=== PATIENT | female | born 1980 | race American Indian/Alaskan Native ===

== ENCOUNTER 2018-01-01 16:58 | Emergency (ER) | payer MEDICAID ==
--- NOTE | 2018-01-01 17:33 | Emergency Department Report ---
Blank Doc - Documentation Documentation: 37-year-old female currently approximately 13 weeks 4 days presents to the hospital complaining of bright red vaginal bleeding today. Patient has had brown spotting for the last 1 week. Patient has been on bed rest for the past 2 weeks [address] ordered [address]. Mosher at the [facility] [employer]. Patient denies pain currently. She has used 1 pad today. She has been referred to a high school tutor with appointment scheduled next week. Patient has had several ultrasounds verifying viable IUP including 2 this month and has been to [facility] as well. No urinary sx reported. Pt states to her knowledge she is RH+ and has not received Rhogam. abd nontender cbc hcg type and screen US pending
[2018-01-01 17:50] LABS: Basophils % (Auto) 0.4 % (0.0-1.8); Eosinophils # (Auto) 0.2 K/mm3 (0.0-0.4); Hematocrit 30.5 % (30.3-42.9); Hemoglobin 10.2 gm/dl (10.1-14.3); Lymphocytes # (Auto) 1.6 K/mm3 (1.2-5.4); Lymphocytes % (Auto) 20.2 % (13.4-35.0); Mean Corpuscular HGB Conc 33 % (30-34); Mean Corpuscular Hemoglobin 29 pg (28-32); Mean Corpuscular Volume 86 fl (79-97); Monocytes # (Auto) 0.4 K/mm3 (0.0-0.8); Monocytes % (Auto) 5.3 % (0.0-7.3); Platelet Count 304 K/mm3 (140-440); Red Blood Count 3.56 M/mm3 (3.65-5.03); Red Cell Distribution Width 15.1 % (13.2-15.2)
--- NOTE | 2018-01-01 19:09 | Emergency Department Report ---
ED Female HPI - General Chief complaint: Vaginal Bleeding Stated complaint: 13WKS BLEEDING Time Seen by Provider: 01/01/18 19:07 Source: patient Mode of arrival: Ambulatory Limitations: No Limitations - History of Present Illness Initial comments: This is a 37-year-old female who is not known to this provider previously. She is 6, para 3, last menstrual period is September 28, and reports a surgical history of dilatation and curettage 1. She reports being recently diagnosed with placenta previa. She presents to the ER with a complaint of acute on chronic vaginal bleeding over the past 2 weeks. She reports being placed on bed rest for the past 2 weeks. This bleeding is painless, does not radiate anywhere, does not have exacerbating or relieving factors. She denies urinary symptoms. MD Complaint: vaginal bleeding -: Gradual, week(s) Quality: other Consistency: other Improves with: other Worsens with: other Are you Now?: Yes Associated Symptoms: vaginal bleeding. denies: vaginal discharge, abdominal pain, nausea/vomiting, fever/chills, headaches, loss of appetite, dysuria, hematuria, rash, seizure, shortness of breath, syncope, weakness - Related Data Sexually active: Yes Home Medications Medication Instructions Recorded Confirmed Last Taken No Known Home Medications [No 03/01/13 03/01/13 Unknown Reported Home Medications] Allergies Allergy/AdvReac Type Severity Reaction Status Date / Time No Known Allergies Allergy Verified 01/01/18 17:07 ED Review of Systems ROS: Stated complaint: 13WKS BLEEDING Other details as noted in HPI Comment: All other systems reviewed and negative ED Past Medical Hx - Past Medical History Previous Medical History?: No - Surgical History Past Surgical History?: Yes Additional Surgical History: D&C 2007 - Social History Smoking Status: Never Smoker Substance Use Type: None - Medications Home Medications: Home Medications Medication Instructions Recorded Confirmed Last Taken Type No Known Home Medications [No 03/01/13 03/01/13 Unknown History Reported Home Medications] ED Physical Exam - General Limitations: No Limitations General appearance: alert, in no apparent distress - Head Head exam: Present: atraumatic, normocephalic - Eye Eye exam: Present: normal appearance, EOMI. Absent: nystagmus - ENT ENT exam: Present: normal exam, normal orophraynx, mucous membranes moist, normal external ear exam - Neck Neck exam: Present: normal inspection, full ROM. Absent: tenderness, meningismus - Respiratory Respiratory exam: Present: normal lung sounds bilaterally. Absent: respiratory distress, chest wall tenderness - Cardiovascular Cardiovascular Exam: Present: regular rate, normal rhythm, normal heart sounds. Absent: bradycardia, tachycardia, irregular rhythm, systolic murmur, diastolic murmur, rubs, gallop - GI/Abdominal GI/Abdominal exam: Present: soft, normal bowel sounds. Absent: distended, tenderness, guarding, rebound, rigid, pulsatile mass - Extremities Exam Extremities exam: Present: normal inspection, full ROM, normal capillary refill , other (2+ pulses noted in the bilateral upper, lower extremities. Compartments soft. No long bony tenderness. The pelvis is stable.). Absent: tenderness, pedal edema, joint swelling, calf tenderness - Back Exam Back exam: Present: normal inspection, full ROM. Absent: tenderness, CVA tenderness (R), paraspinal tenderness, vertebral tenderness - Neurological Exam Neurological exam: Present: alert, oriented X3, CN II-XII intact, normal gait, other (Extraocular movements intact. Tongue midline. No facial droop. Facial sensation intact to light touch in the V1, V2, V3 distribution bilaterally. 5 and 5 strength in 4 extremities.. Sensation is intact to light touch in 4 extremities.). Absent: motor sensory deficit - Psychiatric Psychiatric exam: Present: normal affect, normal mood - Skin Skin exam: Present: warm, dry, intact, normal color. Absent: rash ED Course Vital Signs 01/01/18 01/01/18 17:02 19:18 Temperature 98.4 F Pulse Rate 92 H Respiratory 16 16 Rate Blood Pressure 137/83 O2 Sat by Pulse 98 98 Oximetry - Reevaluation(s) Reevaluation #1: 01/01/18 22:34 Case is discussed with Dr. Mosher who recommends that patient is not a cerclage candidate as she is bleeding, and recommends continued bed rest and follow-up within the next week. She does not recommend any specific intervention at this time. ED Medical Decision Making - Lab Data Result diagrams: 01/01/18 17:37 Vital Signs 01/01/18 01/01/18 17:02 19:18 Temperature 98.4 F Pulse Rate 92 H Respiratory 16 16 Rate Blood Pressure 137/83 O2 Sat by Pulse 98 98 Oximetry Lab Results 01/01/18 01/01/1801/01/18 Range/Units 17:37 17:37 17:37 WBC 8.1 (4.5-11.0) K/mm3 RBC 3.56 L (3.65-5.03) M/mm3 Hgb 10.2 (10.1-14.3) gm/dl Hct 30.5 (30.3-42.9) % MCV 86 (79-97) fl MCH 29 (28-32) pg MCHC 33 (30-34) % RDW 15.1 (13.2-15.2) % Plt Count 304 (140-440) K/mm3 Lymph % (Auto) 20.2 (13.4-35.0) % [place] % (Auto) 5.3 (0.0-7.3) % Eos % (Auto) 2.0 (0.0-4.3) % Baso % (Auto) 0.4 (0.0-1.8) % Lymph # 1.6 (1.2-5.4) K/mm3 [place] # 0.4 (0.0-0.8) K/mm3 Eos # 0.2 (0.0-0.4) K/mm3 Baso # 0.0 (0.0-0.1) K/mm3 Seg Neutrophils % 72.1 H (40.0-70.0) % Seg Neutrophils # 5.8 (1.8-7.7) K/mm3 HCG, Quant 11812 H (0-4) mIU/mL Urine Color (Yellow) Urine Turbidity (Clear) Urine pH (5.0-7.0) Ur Specific [place] (1.003-1.030) Urine Protein (Negative) mg/dL Urine Glucose (UA) (Negative) mg/dL Urine Ketones (Negative) mg/dL Urine Blood (Negative) Urine Nitrite (Negative) Urine Bilirubin (Negative) Urine Urobilinogen (<2.0) mg/dL Ur Leukocyte Esterase (Negative) Urine WBC (Auto) (0.0-6.0) /HPF Urine RBC (Auto) (0.0-6.0) /HPF U Epithel Cells (Auto) (0-13.0) /HPF Urine Mucus /HPF Blood Type B POSITIVE Antibody Screen Negative 01/01/18 Range/Units 19:12 WBC (4.5-11.0) K/mm3 RBC (3.65-5.03) M/mm3 Hgb (10.1-14.3) gm/dl Hct (30.3-42.9) % MCV (79-97) fl MCH (28-32) pg MCHC (30-34) % RDW (13.2-15.2) % Plt Count (140-440) K/mm3 Lymph % (Auto) (13.4-35.0) % [place] % (Auto) (0.0-7.3) % Eos % (Auto) (0.0-4.3) % Baso % (Auto) (0.0-1.8) % Lymph # (1.2-5.4) K/mm3 [place] # (0.0-0.8) K/mm3 Eos # (0.0-0.4) K/mm3 Baso # (0.0-0.1) K/mm3 Seg Neutrophils % (40.0-70.0) % Seg Neutrophils # (1.8-7.7) K/mm3 HCG, Quant (0-4) mIU/mL Urine Color Yellow (Yellow) Urine Turbidity Slightly-cloudy (Clear) Urine pH 6.0 (5.0-7.0) Ur Specific [place] 1.026 (1.003-1.030) Urine Protein 30 mg/dl (Negative) mg/dL Urine Glucose (UA) Neg (Negative) mg/dL Urine Ketones Neg (Negative) mg/dL Urine Blood Lg (Negative) Urine Nitrite Neg (Negative) Urine Bilirubin Neg (Negative) Urine Urobilinogen 2.0 (<2.0) mg/dL Ur Leukocyte Esterase Neg (Negative) Urine WBC (Auto) 8.0 H (0.0-6.0) /HPF Urine RBC (Auto) > 182.0 (0.0-6.0) /HPF U Epithel Cells (Auto) 2.0 (0-13.0) /HPF Urine Mucus 2+ /HPF Blood Type Antibody Screen - Radiology Data Radiology results: report reviewed, image reviewed [facility] [address] [place] [address] Ultrasound Report Signed Patient: MEERA MARTINEZ MR#: [id number] : 1980 Acct:[id number] Age/Sex: 37 / F ADM Date: 01/01/18 Loc: ED Attending Dr: Ordering Physician: DARLEEN RODRIGUEZ MD Date of Service: 01/01/18 Procedure(s): US OB transvaginal Accession Number(s): [id number] cc: DARLEEN RODRIGUEZ MD FINAL REPORT EXAM: US OB TRANSVAGINAL HISTORY: vag bleeding Beta HCG 73932 which is equivalent to a 6-7 week gestation. Last menstrual. September 28, 2017 with estimated gestational age by dates of 13 weeks 4 days. TECHNIQUE: Transvaginal grayscale and M-mode imaging of the pelvis was performed. Comparison: Transabdominal ultrasound also performed today FINDINGS: The cervix is closed. There decreased echogenicity within the cervix suggestive of fluid. The uterus measures 17.5 centimeters by 10.3 centimeters by 11.3 centimeters. There is demonstration of a single living intrauterine gestation with estimated gestational age of 14 weeks 1 day by measurement of crown-rump length (8.2 centimeters). heart rate is measured at 163 beats per minute. IMPRESSION: 1. Demonstration of a single living intrauterine gestation with estimated gestational age of 14 weeks 1 day by measurement of crown-rump length. 2. The cervix is closed. Decreased echogenicity within the cervix is suggestive of fluid. Transcribed By: ED Dictated By: MICHELLE ADDISON MD Electronically Authenticated By: MICHELLE ADDISON MD Signed Date/Time: 01/01/18 699 - Medical Decision Making Differential diagnosis, including but not limited to: Placental previa, urinary tract infection, miscarriage, threatened miscarriage Assessment and plan: 37-year-old female with reported history of acute on subacute vaginal bleeding and reported history of outpatient placenta previa. Rh+. Urinalysis not consistent with urinary tract infection. Hemodynamically stable. Ultrasound does not demonstrate any evidence of acute surgical condition. We will discuss with her tool room lathe operator Dr. Mosher. Critical care attestation.: If time is entered above; I have spent that time in minutes in the direct care of this critically ill patient, excluding procedure time. ED Disposition Clinical Impression: Vaginal bleeding before 22 weeks gestation Disposition: - TO HOME OR SELFCARE Is pt being admited?: No Does the pt Need Aspirin: No Condition: Good Instructions: Placenta Previa (ED) Additional Instructions: Rest, and avoid heavy lifting. Avoid strenuous physical activity. Remain on bedrest. Cannot have sex until cleared by a tool room lathe operator. Follow-up with her tool room lathe operator within the next 3-5 days. Return to the ER right away with new pain, worsened pain, migration of pain, projectile vomiting, change in mental status, confusion, inability to tolerate liquid feeds. Referrals: PRIMARY CAREMD [Primary Care Provider] - 3-5 Days ELOY MOSHER MD [Staff Physician] - 3-5 Days
[2018-01-01 19:31] LABS: Bilirubin,Urine NEG (Negative); Blood,Urine LG (Negative); Color,Urine Yellow (Yellow); Mucus,Urine 2+ /HPF; RBC,Urine > 182.0 /HPF (0.0-6.0)
[2018-01-01] MEDS ORDERED: ZOFRAN ODT ONE (19:41)
[2018-01-01] MEDS ORDERED: ZOFRAN ODT PO PRN (19:41)
--- NOTE | 2018-01-01 22:06 | Ultrasound Report ---
FINAL REPORT EXAM: US OB TRANSVAGINAL HISTORY: vag bleeding Beta HCG 10514 which is equivalent to a 6-7 week gestation. Last menstrual. September 28, 2017 with estimated gestational age by dates of 13 weeks 4 days. TECHNIQUE: Transvaginal grayscale and M-mode imaging of the pelvis was performed. Comparison: Transabdominal ultrasound also performed today FINDINGS: The cervix is closed. There decreased echogenicity within the cervix suggestive of fluid. The uterus measures 17.5 centimeters by 10.3 centimeters by 11.3 centimeters. There is demonstration of a single living intrauterine gestation with estimated gestational age of 14 weeks 1 day by measurement of crown-rump length (8.2 centimeters). heart rate is measured at 163 beats per minute. IMPRESSION: 1. Demonstration of a single living intrauterine gestation with estimated gestational age of 14 weeks 1 day by measurement of crown-rump length. 2. The cervix is closed. Decreased echogenicity within the cervix is suggestive of fluid.
--- NOTE | 2018-01-01 22:09 | Ultrasound Report ---
FINAL REPORT EXAM: US OB < = 14 WEEKS FETUS HISTORY: vag bleeding TECHNIQUE: Transabdominal grayscale and M-mode imaging of the uterus was performed. Comparison: Transvaginal study also performed today FINDINGS: The uterus measures 17.4 centimeters by 10 centimeters by 13.3 centimeters. There is demonstration of an intrauterine gestation with estimated gestational age of 13 weeks 4 days by measurement of crown-rump length (7.5 centimeters). heart rate is measured at 162 beats per minute. The ovaries are not demonstrated on the images provided. IMPRESSION: 1. Demonstration of a single living intrauterine gestation with estimated gestational age of 13 weeks 4 days by measurement of crown-rump length.
[2018-01-01 22:47] VITALS: BP 111/63
== END 2018-01-01 22:46 | disposition home or self-care (01) ==
LOC: ED 16:58
DX: O46.91 Antepartum hemorrhage, unspecified, first trimester (principal); Z3A.13 13 weeks gestation of pregnancy
CPT/HCPCS: 36415; 76801; 76817; 81001; 84702; 85025; 86850; 86900; 86901; 87086; Q0162

== ENCOUNTER 2018-07-04 23:48 | Inpatient (IN) | payer MEDICAID ==
[2018-07-05] MEDS ORDERED: LACTATED RINGERS 1,000 ML ONE (00:12)
[2018-07-05 00:43] LABS: Hemoglobin 9.3 gm/dl (10.1-14.3); Mean Corpuscular HGB Conc 31 % (30-34); Mean Corpuscular Volume 73 fl (79-97); Platelet Count 363 K/mm3 (140-440); Red Blood Count 4.13 M/mm3 (3.65-5.03)
[2018-07-05] MEDS ORDERED: REGLAN IV ONE (00:52)
[2018-07-05] MEDS ORDERED: BICITRA ONE (00:52)
[2018-07-05] MEDS ORDERED: BICITRA PO ONE (00:52)
[2018-07-05] MEDS ORDERED: PITOCin/NS 20 UNIT/1000ML DRIP 20,000 MILLIUNITS/1,000 ML BAG IV ONE (00:52)
[2018-07-05] MEDS ORDERED: PEPCID IV ONE ×2 (00:52→00:53)
[2018-07-05] MEDS ORDERED: METHERGINE IM ONE ×2 (00:53→00:55)
[2018-07-05] MEDS ORDERED: CYTOTEC PR ONE (00:53)
[2018-07-05] MEDS ORDERED: REGLAN ONE (00:53)
[2018-07-05] MEDS ORDERED: CYTOTEC ONE (00:54)
--- NOTE | 2018-07-05 00:58 | History and Physical Report ---
History of Present Illness Date of examination: 07/05/18 Date of admission: 07/05/18 Chief complaint: leaking " I broke my water" History of present illness: This is a 38 yo EDC 07/05/18 at 40 weeks here for leaking. She said a big gush of clear fluid at home and came here and no bleeding. She is a patient of [facility] since 11 weeks and has been followed by MFM for EIF, polyhydramnios, and low lying placenta. Per MFM resolved but on US today shows continued low lying placenta. Patient is bleeding and will draw labs, and prepare for primary csec. 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 denies: smoking, alcohol abuse, prescription drug abuse - Obstetrical History Expected Date of Delivery: 07/05/18 Actual Gestation: 40 Week(s) 0 Day(s) : 5 Para: 3 Hx # Term Pregnancies: 3 Number of Pregnancies: 0 Spontaneous Abortions: 0 Induced : 1 Number of Living Children: 3 Medications and Allergies Allergies Allergy/AdvReac Type Severity Reaction Status Date / Time No Known Allergies Allergy Verified 01/01/18 17:07 Home Medications Medication Instructions Recorded Confirmed Last Taken Type No Known Home Medications [No 03/01/13 03/01/13 Unknown History Reported Home Medications] Active Meds: Active Medications Lactated Ringer's (Lactated Ringers) 1,000 mls @ 999 mls/hr IV DIRECT ILIANA Review of Systems All systems: negative Genitourinary: vaginal bleeding, leakage of fluid, contractions - Vital Signs Vital signs: Vital Signs Pulse BP 81 120/81 07/04/18 23:58 07/04/18 23:58 Temp Pulse Resp BP Pulse Ox 81 130/85 07/05/18 00:39 07/05/18 00:39 - Physical Exam Breasts: Positive: normal Cardiovascular: Regular rate, Normal S1 Lungs: Positive: Clear to auscultation, Normal air movement Abdomen: Positive: normal appearance, soft, normal bowel sounds. Negative: distention, tenderness, guarding Genitourinary (Female): Positive: normal external genitalia, normal perenium Vulva: both: normal Uterus: Positive: normal size Anus/Rectum: Positive: normal perianal skin Extremities: Positive: normal Deep Tendon Reflex Grade: Normal +2 - Obstetrical FHR: category 1 Cervical Dilatation: 2 Cervical Effacement Percentage: 100 station: 3 Uterine Contraction Pattern: Regular Uterine Tone Measurement Phase: Contraction Uterine Contraction Intensity: Mild Results All other labs normal. Ultrasound: report reviewed Assessment and Plan A/P IUP 40 weeks, cephalic low lying placenta vaginal bleeding labor IVF, labs proceed with primary csec consents signed after r/b/a which include but not limited to bleeding, infection, damage to pelvic and non pelvic organs, blood clots, hysterectomy and
[2018-07-05 01:00] LABS: Red Cell Distribution Width 20.9 % (13.2-15.2)
[2018-07-05] MEDS ORDERED: ANCEF/STERILE WATER 2 GM/20 ML 2 GM/20 ML SYRINGE IV NR (01:00)
[2018-07-05] MEDS ORDERED: PITOCin/NS 20 UNIT/1000ML DRIP 20 UNITS/1,000 ML BAG IV SCH ×2 (01:00→04:00)
[2018-07-05] MEDS ORDERED: LACTATED RINGERS 1,000 ML IV SCH ×2 (01:00)
[2018-07-05] MEDS ORDERED: DILAUDID IV PRN ×2 (01:13)
[2018-07-05] MEDS ORDERED: NARCAN 0.4 MG/1 ML IV PRN ×2 (01:13→03:11)
[2018-07-05] MEDS ORDERED: PHENERGAN PR PRN (01:13)
[2018-07-05] MEDS ORDERED: ZOFRAN IV PRN (01:13)
[2018-07-05] MEDS ORDERED: BENADRYL IV PRN (01:13)
[2018-07-05] MEDS ORDERED: PHENERGAN PO PRN (01:13)
--- NOTE | 2018-07-05 01:13 | Anesthesia Day of Surgery ---
Anesthesia Day of Surgery - Day of Surgery Patient Examined: Yes Patient H&P Reviewed: Yes Patient is NPO: Yes
--- NOTE | 2018-07-05 01:13 | Anesthesia Consultation ---
Anesthesia Consult and Med Hx Date of service: 07/05/18 - Airway Anesthetic Teeth Evaluation: Good ROM Head & Neck: Adequate Mental/Hyoid Distance: Adequate Mallampati Class: Class II Intubation Access Assessment: Probably Good - Pre-Operative Health Status ASA Pre-Surgery Classification: ASA2, Emergency Proposed Anesthetic Plan: Epidural, Spinal - Pulmonary Hx Asthma: No - Cardiovascular System Hx Hypertension: No - Central Nervous System Hx Seizures: No Hx Psychiatric Problems: No - Endocrine Hx Renal Disease: No Hx Hypothyroidism: No Hx Hyperthyroidism: No - Hematic Hx Anemia: Yes Hx Sickle Cell Disease: No - Other Systems Hx Alcohol Use: No
[2018-07-05] MEDS ORDERED: WATER FOR IRRIG STERILE IR ONE (01:30)
[2018-07-05] MEDS ORDERED: NACL 0.9% IR ONE (01:30)
--- NOTE | 2018-07-05 01:43 | Ultrasound Report ---
FINAL REPORT PROCEDURE: US OB LIMITED TECHNIQUE: Real-time limited sonographic examination was performed for evaluation of size, pos ition, heartbeat, fluid volume for each fetus with image documentation (1 or more fetuses). CPT 7681 5 HISTORY: rule out abruption COMPARISON: No prior studies are available for comparison. FINDINGS: Fetus is in cephalic presentation. Placenta is anterior and low lying. There is no abruption. heart rate is 151 beats per minute. The cervix is incompetent. Endocervical canal is open. There are membranes bulging through the endoce rvical canal into the vagina. Biophysical profile: breathing movements: 2. movements: 2. posterior and tone: 2. Amniotic fluid volume: 2. IMPRESSION: Fetus is in cephalic presentation. Placenta is anterior and low lying. There is no abruption. The cervix is incompetent. Endocervical canal is open. There are membranes bulging through the endoce rvical canal into the vagina. biophysical profile is 8/8.
[2018-07-05] MEDS ORDERED: XYLOCAINE MPF 2% ONE ×4 (01:53)
[2018-07-05] MEDS ORDERED: NEO SYNEPHRINE/NS Syringe(OR USE) IV ONE (01:53)
[2018-07-05] MEDS ORDERED: SODIUM CHLORIDE FLUSH SYRINGE 10 ML IV NR ×2 (02:00→04:00)
[2018-07-05] MEDS ORDERED: NACL 0.9% 1000 ML 2,000 ML ONE (02:24)
[2018-07-05] MEDS ORDERED: ROBINUL ONE (02:30)
[2018-07-05] MEDS ORDERED: ASTRAMORPH PF 10MG/10ML ONE (02:37)
[2018-07-05] MEDS ORDERED: DILAUDID ONE (02:45)
[2018-07-05] MEDS ORDERED: NACL 0.9% 1000 ML 1,000 ML ONE (02:55)
[2018-07-05] MEDS ORDERED: SENOKOT PO PRN (03:11)
[2018-07-05] MEDS ORDERED: MORPHINE IV PRN ×2 (03:11)
[2018-07-05] MEDS ORDERED: TUCKS PAD TP PRN (03:11)
[2018-07-05] MEDS ORDERED: LANSINOH TP PRN (03:11)
[2018-07-05] MEDS ORDERED: TYLENOL PO PRN (03:11)
--- NOTE | 2018-07-05 03:19 | Procedure Note ---
OB Delivery Note - Delivery Date of Delivery: 07/05/18 Surgeon: ELOY BEAUCHAMP Estimated blood loss: other (1200 cc) - Section Preop diagnosis: other (low lying placenta, vaginal bleeding, labor ) Postop diagnosis: other (breech and low lying placenta) section procedure: section Disposition: PACU Complications: intra-op hemorrhage Narrative: see op note - Infant A at 1 minute: 8 at 5 minutes: 9 Gender: Female
--- NOTE | 2018-07-05 03:32 | Operative Report ---
Operative Report Operative Report: DATE: 07/05/18 PREOPERATIVE DIAGNOSES: Term , vaginal bleeding, low lying placenta POSTOPERATIVE DIAGNOSES: same as above, breech OPERATION: Primary section by low-transverse incision. SURGEON: Dr. Corrine Mosher MD ANESTHESIA: Spinal ESTIMATED BLOOD LOSS: 1200 mL. COMPLICATIONS: None. CONDITION: Stable. DRAINS: Russ catheter. INDICATIONS: The patient is a 38-year-old, G6, para 3023 with an EDC of 07/05/18. The patient has been followed by MFM for low lying placenta per MFM resolved 06/14/18 and polyhydramnios. She came in c/o leaking and bleeding. US performed in triage noting a low lying placenta, cephalic. As the patient was noted to be bleeding, navin and confirmed remeaining low lying placenta it was discussed and agreed to proceed with primary . PROCEDURE: The patient was taken to the operating room where her spinal anesthesia was reinforced. She was prepped and draped in the usual fashion for the procedure. After adequate epidural level was confirmed, the scalp was utilized to make a transverse incision in the patient's lower abdominal wall. Th is incision was carried down to the level of the fascia, which was also transversely incised. After adequate hemostasis, the fascia was bluntly and sharply up from the underlying rectus muscle. The rectus muscle was in midline exposing the peritoneum. The peritoneum was carefully grasped and elevated with hemostats. It was entered in an up and down fashion with Metzenbaum scissors. The bladder blade was placed in the lower pole of the incision to protect the bladder. The uterus was palpated and inspected. toruous vessel noted through out low uterine segment. It was decided to find a clear area. The vertex presentation was not confirmed and feet were palpated and grasped and delivered a viable female. Clear fluid was noted upon entering into the amniotic space. A term viable female was delivered up through the incision and handed to awaiting Peds team. . The placenta was manually extracted from the endometrial cavity. A ring clamp and two Allis clamps were placed around the margin of the uterine incision for hemostasis.The uterus was delivered up into the operative field. The endometrial cavity was swiped clean with a moist laparotomy pad. The uterine incision was then closed in a two-layered fashion with 0 Vicryl suture, the first layer interlocking and the second layer imbricating. Several figure of eight used for several tortuous vessels. Two additional stitches of 3-0 Vicryl suture were utilized for hemostasis. tissel and surgicell and indoseed used. The uterine incision was noted to be hemostatic upon closure. The uterus was rotated for sims, normal tubes and ovaries were noted on both sides. The uterus was then returned to its normal position of the abdominal cavity. The sponge and instrument count was performed for the first time at this point and found to be correct. The pelvis and anterior uterine space was then irrigated with saline solution. It was suctioned dry. A final check of the uterine incision confirmed hemostasis. The rectus muscle was stabilized across the midline with two simple stitches of 0 Vicryl suture. The subcutaneous tissue was then exposed, and the fascia closed with two running lengths of 0 Vicryl suture, beginning in lateral margins and overlapping the midline. The subcutaneous tissue was then irrigated and inspected. No active bleeding was noted. It was closed with a running length of 3-0 plain catgut suture. The skin was then approximated with surgical melyssa needle. The incision was cleansed and sterilely dressed. The patient was transferred to the recovery room in stable condition. The es timated blood loss through the procedure was 1200 mL. The sponge and instrument counts were performed two more times during closure and found to be correct each time. Intraop blood was intitated as patient began with hemoglobin of 9 from chronic anemia. 1 U of prbc transfused in OR and to continue in PACU.
[2018-07-05] MEDS ORDERED: D5LR 1,000 ML IV SCH (04:00)
[2018-07-05] MEDS: TORADOL IV PRN ×3 (07:56→20:44)
[2018-07-05 08:22] LABS: Basophils # (Auto) 0.1 K/mm3 (0.0-0.1); Basophils % (Auto) 0.3 % (0.0-1.8); Hematocrit 27.4 % (30.3-42.9); Hemoglobin 8.6 gm/dl (10.1-14.3); Lymphocytes # (Auto) 1.2 K/mm3 (1.2-5.4); Lymphocytes % (Auto) 6.4 % (13.4-35.0); Mean Corpuscular HGB Conc 32 % (30-34); Mean Corpuscular Volume 76 fl (79-97); Monocytes # (Auto) 1.6 K/mm3 (0.0-0.8); Monocytes % (Auto) 8.5 % (0.0-7.3); Platelet Count 193 K/mm3 (140-440); Red Blood Count 3.59 M/mm3 (3.65-5.03)
[2018-07-05 08:35] LABS: INR 1.63 (0.87-1.13)
[2018-07-05 08:36] LABS: Partial Thromboplastin Time 40.2 Sec. (24.2-36.6)
[2018-07-05 08:40] LABS: Red Cell Distribution Width 21.4 % (13.2-15.2)
[2018-07-05] MEDS: PRENATAL VITAMIN PO SCH (10:01)
[2018-07-05] MEDS: FEOSOL PO SCH (10:01)
[2018-07-05 15:40] LABS: Hematocrit 24.7 % (30.3-42.9); Hemoglobin 7.8 gm/dl (10.1-14.3)
--- NOTE | 2018-07-05 16:35 | Ultrasound Report ---
FINAL REPORT PROCEDURE: US OB LIMITED TECHNIQUE: Real-time limited sonographic examination was performed for evaluation of size, pos ition, heartbeat, fluid volume for each fetus with image documentation (1 or more fetuses). CPT 7681 5 HISTORY: rule out abruption COMPARISON: No prior studies are available for comparison. FINDINGS: Fetus is in cephalic presentation. Placenta is anterior and low lying. There is no abruption. The cervix is incompetent. Endocervical canal is open. There are membranes bulging through the endoce rvical canal into the vagina. IMPRESSION: Fetus is in cephalic presentation. Placenta is anterior and low lying. There is no abruption. The cervix is incompetent. Endocervical canal is open. There are membranes bulging through the endoce rvical canal into the vagina.
--- NOTE | 2018-07-05 17:39 | Progress Note ---
Assessment and Plan - Patient Problems (1) delivery delivered Current Visit: Yes Status: Acute Plan to address problem: routine postop care Subjective - Subjective Date of service: 07/05/18 Interval history: Patient is s/p primary c/s today. Resting in bed with curtis in place. Denies any nausea Patient reports: pain well controlled, no voiding normally : doing well Objective - Vital Signs Latest vital signs: Vital Signs Temp Pulse Resp BP BP Pulse Ox 07/05/18 13:10 97.9 F 100 H 18 102/63 07/05/18 08:30 97.6 F 71 18 97/60 07/05/18 05:19 97.6 F 115 H 20 117/77 93 07/05/18 04:21 97.8 F 101 H 12 139/101 98 07/05/18 04:06 97.5 F L 99 H 24 146/102 98 07/05/18 04:05 30 H 07/05/18 03:51 97.6 F 91 H 25 H 147/100 98 07/05/18 03:36 97.5 F L 100 H 32 H 138/87 99 07/05/18 03:21 97.5 F L 112 H 31 H 135/78 98 07/05/18 01:09 95 H 126/76 07/05/18 00:55 69 131/82 07/05/18 00:39 81 130/85 07/05/18 00:24 80 134/83 07/05/18 00:08 77 119/78 07/04/18 23:58 81 120/81 Intake and Output 07/05/18 07/05/18 07/05/18 06:59 14:59 22:59 Intake Total 4200 560 Output Total 750 600 Balance 3450 -40 Intake: IV 3700 Oral 560 Blood Product 500 Leukoreduced Red Blood 0 Cells Unit [id number] Output: Urine 750 600 Indwelling Catheter 600 Void 0 Other: Total, Intake Amount 120 Total, Output Amount 600 # Voids Void 0 Weight 66.678 kg Estimated Blood Loss 1,200 - Exam Breasts: Present: deferred Cardiovascular: Present: Regular rate Lungs: Present: Clear to auscultation - Labs Labs: Abnormal lab results 07/05/18 07/05/18 07/05/18 Range/Units 00:15 00:15 07:44 WBC (4.5-11.0) K/mm3 RBC (3.65-5.03) M/mm3 Hgb 9.3 L (10.1-14.3) gm/dl Hct 30.0 L (30.3-42.9) % MCV 73 L (79-97) fl MCH 22 L (28-32) pg RDW 20.9 H (13.2-15.2) % Lymph % (Auto) (13.4-35.0) % [place] % (Auto) (0.0-7.3) % [place] # (0.0-0.8) K/mm3 Seg Neutrophils % (40.0-70.0) % Seg Neutrophils # (1.8-7.7) K/mm3 PT 20.4 H (12.2-14.9) Sec. INR 1.63 H (0.87-1.13) APTT 40.2 H (24.2-36.6) Sec. Crossmatch See Detail 07/05/18 07/05/18 Range/Units 07:44 14:48 WBC 18.7 H (4.5-11.0) K/mm3 RBC 3.59 L (3.65-5.03) M/mm3 Hgb 8.6 L 7.8 L (10.1-14.3) gm/dl Hct 27.4 L 24.7 L (30.3-42.9) % MCV 76 L (79-97) fl MCH 24 L (28-32) pg RDW 21.4 H (13.2-15.2) % Lymph % (Auto) 6.4 L (13.4-35.0) % [place] % (Auto) 8.5 H (0.0-7.3) % [place] # 1.6 H (0.0-0.8) K/mm3 Seg Neutrophils % 84.8 H (40.0-70.0) % Seg Neutrophils # 15.8 H (1.8-7.7) K/mm3 PT (12.2-14.9) Sec. INR (0.87-1.13) APTT (24.2-36.6) Sec. Crossmatch
[2018-07-06] MEDS: IBUPROFEN PO PRN ×4 (00:25→18:15)
[2018-07-06] MEDS: PERCOCET 5/325 PO PRN (04:27)
[2018-07-06] MEDS ORDERED: M-M-R II VACCINE SUB-Q ONE (06:00)
[2018-07-06] MEDS ORDERED: BOOSTRIX IM ONE (06:00)
--- NOTE | 2018-07-06 08:37 | Progress Note ---
Assessment and Plan - Patient Problems (1) delivery delivered Current Visit: Yes Status: Acute Plan to address problem: routine postop care Subjective - Subjective Date of service: 07/06/18 Interval history: Patient is tolerating clear diet. Denies flatus. Pain is better controlled. Patient reports: appetite normal, voiding normally, pain well controlled [place]: doing well, nursing well Objective - Vital Signs Latest vital signs: Vital Signs Temp Pulse Resp BP BP Pulse Ox 07/06/18 05:59 18 07/06/18 04:27 18 07/06/18 00:25 18 07/05/18 21:54 98.7 F 89 20 108/68 97 07/05/18 20:44 18 07/05/18 16:15 97.9 F 87 18 100/67 07/05/18 13:10 97.9 F 100 H 18 102/63 Intake and Output 07/05/18 07/06/18 07/06/18 22:59 06:59 14:59 Intake Total 360 240 Output Total 200 500 Balance 160 -260 Intake: Oral 360 240 Output: Urine 200 500 Void 200 500 Other: Total, Intake Amount 240 120 Total, Output Amount 200 200 # Voids Void 0 - Exam Incision: Present: dressed - Labs Labs: Abnormal lab results 07/05/18 07/05/18 07/05/18 Range/Units 00:15 07:44 07:44 WBC 18.7 H (4.5-11.0) K/mm3 RBC 3.59 L (3.65-5.03) M/mm3 Hgb 8.6 L (10.1-14.3) gm/dl Hct 27.4 L (30.3-42.9) % MCV 76 L (79-97) fl MCH 24 L (28-32) pg RDW 21.4 H (13.2-15.2) % Lymph % (Auto) 6.4 L (13.4-35.0) % APTT 40.2 H (24.2-36.6) Sec. Crossmatch See Detail 07/05/18 Range/Units 14:48 WBC (4.5-11.0) K/mm3 RBC (3.65-5.03) M/mm3 Hgb 7.8 L (10.1-14.3) gm/dl Hct 24.7 L (30.3-42.9) % MCV (79-97) fl MCH (28-32) pg RDW (13.2-15.2) % Lymph % (Auto) (13.4-35.0) % APTT (24.2-36.6) Sec. Crossmatch
[2018-07-06] MEDS ORDERED: CEPACOL X STRENGTH MM PRN (10:00)
[2018-07-06] MEDS: PRENATAL VITAMIN PO SCH (11:37)
[2018-07-06] MEDS: MYLICON PO PRN (11:37)
[2018-07-06] MEDS: FEOSOL PO SCH (11:37)
[2018-07-06] MEDS: NORCO 5/325 PO PRN ×2 (11:38→18:15)
[2018-07-06] MEDS: MILK OF MAGNESIA PO PRN (22:32)
[2018-07-07] MEDS: IBUPROFEN PO PRN ×5 (00:04→23:23)
[2018-07-07] MEDS: PERCOCET 5/325 PO PRN ×2 (00:05→21:26)
--- NOTE | 2018-07-07 08:38 | Progress Note ---
Assessment and Plan A/P POD 2 primary csec s/p blood transfusion 2 u iron tid stable routine post op care d/c home tomorrow Subjective - Subjective Date of service: 07/07/18 Principal diagnosis: s/p csec for breech, low lying placenta Interval history: This is a 38 yo EDC 07/05/18 at 40 weeks here for leaking. She said a big gush of clear fluid at home and came here and no bleeding. She is a patient of [facility] since 11 weeks and has been followed by MFM for EIF, polyhydramnios, and low lying placenta. Per MFM resolved but on US today shows continued low lying placenta. Patient is bleeding and will draw labs, and prepare for primary csec. Patient reports: appetite normal, voiding normally, pain well controlled, flatus, ambulating normally [place]: doing well Objective - Vital Signs Latest vital signs: Vital Signs Temp Pulse Resp BP BP Pulse Ox 07/07/18 07:26 97.8 F 99 H 18 100/68 07/07/18 05:47 18 07/07/18 01:04 97.9 F 103 H 20 111/70 99 07/07/18 00:05 18 07/07/18 00:04 18 07/06/18 08:50 98.5 F 97 H 18 109/68 Intake and Output 07/06/18 07/07/18 07/07/18 23:59 07:59 15:59 Intake Total 240 720 Balance 240 720 Intake: Oral 240 720 Other: Total, Intake Amount 240 480 Total, Output Amount 1 # Voids Void 1 1 - Exam Breasts: Present: normal Cardiovascular: Present: Regular rate, Normal S1 Lungs: Present: Clear to auscultation, Normal air movement Abdomen: Present: normal appearance, soft, normal bowel sounds. Absent: distention, tenderness, guarding Vulva: both: normal Uterus: Present: normal, firm, fundal height below umbilicus. Absent: bogginess, tenderness Extremities: Present: normal Incision: Present: normal, dry, intact
--- NOTE | 2018-07-07 08:41 | Discharge Summary ---
Providers - Providers Date of Admission: 07/05/18 00:56 Date of discharge: 07/08/18 Attending physician: ELOY BEAUCHAMP MD Primary care physician: ELOY BEAUCHAMP MD Hospitalization Reason for admission: active labor, vaginal bleeding, rupture of membranes, other (breech , low lying placenta) Delivery: Procedure: section, primary low transverse Episiotomy: none Laceration: none Incision: normal, dry, intact Other procedures: none complications: transfusion Discharge diagnosis: IUP at term delivered [place] baby: female Hospital course: Patient admitted for srom and vaginal bleeding with a low lying placenta in labor. primary csec performed. patient anemic and lost 1200 cc blood during csec. Required 2 u blood transfusion. Did well post op. discharge home pod #3. f/u in 2 weeks Condition at discharge: Good Disposition: DC-01 TO HOME OR SELFCARE Plan - Discharge Medications Prescriptions: Ferrous Sulfate 325 mg PO TID #60 tablet. Ibuprofen [Motrin] 600 mg PO Q8H PRN #30 tablet PRN Reason: Pain oxyCODONE /ACETAMINOPHEN [Percocet 5/325] 1 tab PO Q6HR PRN #30 tablet PRN Reason: Pain - Provider Discharge Summary Activity: routine, no sex for 6 weeks, no strenuous exercise Diet: routine Instructions: routine Additional instructions: [] Smoking cessation referral if applicable(refer to patient education folder for contact #) [] Refer to [facility]'s [facility] Booklet Call your doctor immediately for: * Fever > 100.5 * Heavy vaginal bleeding ( >1 pad per hour) * Severe persistent headache * Shortness of breath * Reddened, hot, painful area to leg or breast * Drainage or odor from incision. * Keep incision clean and dry at all times and follow doctor's instructions regarding bathing/showering - Follow up plan Follow up: ELOY BEAUCHAMP MD [Primary Care Provider] - 14 Days
[2018-07-07] MEDS: FEOSOL PO SCH (09:51)
[2018-07-07] MEDS: PRENATAL VITAMIN PO SCH (09:51)
[2018-07-07] MEDS: MYLICON PO PRN ×2 (10:06→21:26)
[2018-07-07] MEDS: MILK OF MAGNESIA PO PRN (21:26)
[2018-07-08] MEDS: IBUPROFEN PO PRN ×2 (05:17→12:00)
[2018-07-08] MEDS: PERCOCET 5/325 PO PRN (05:17)
[2018-07-08] MEDS: PRENATAL VITAMIN PO SCH (10:10)
[2018-07-08] MEDS: FEOSOL PO SCH (10:10)
[2018-07-08] MEDS: NORCO 5/325 PO PRN (12:00)
[2018-07-08 15:55] VITALS: BP 136/88
== END 2018-07-08 16:40 | disposition home or self-care (01) | DRG 765 ==
LOC: TRG 23:48 → APU 07-05 00:56 → OB 07-05 06:35
PROVIDERS: ADMIT Obstetrics & Gynecology; ATTEND Obstetrics & Gynecology
PROC: 10D00Z1 Extraction of Products of Conception, Low, Open Approach (ICD-10-PCS; principal; 2018-07-05)
PROC: 30233N1 Transfusion of Nonautologous Red Blood Cells into Peripheral Vein, Percutaneous Approach (ICD-10-PCS; 2018-07-05)
PROC: 3E0234Z Introduction of Serum, Toxoid and Vaccine into Muscle, Percutaneous Approach (ICD-10-PCS; 2018-07-06)
DX: O44.53 Low lying placenta with hemorrhage, third trimester (principal); O72.1 Other immediate postpartum hemorrhage; O40.3XX0 Polyhydramnios, third trimester, not applicable or unspecified; O32.1XX0 Maternal care for breech presentation, not applicable or unspecified; Z37.0 Single live birth; Z3A.40 40 weeks gestation of pregnancy; Z23 Encounter for immunization; Z83.3 Family history of diabetes mellitus; Z82.49 Family history of ischemic heart disease and other diseases of the circulatory system
CPT/HCPCS: 36415; 76815; 76819; 85014; 85018; 85025; 85027; 85610; 85730; 86850; 86900; 86901; 86920; 88307; 90707; G0378; A6250; C9250; J1170; J1200; J1885; J2210; J2274; J2370; J2405; J2590; J2765; J7030; J7120; J7121; P9016

== ENCOUNTER 2021-10-19 15:09 | Emergency (ER) | payer MEDICAID ==
[2021-10-19] MEDS ORDERED: clonazePAM 0.5 MG TAB PO ONE (15:46)
[2021-10-19 16:28] LABS: Basophils # (Auto) 0.1 K/mm3 (0.0-0.1); Basophils % (Auto) 0.8 % (0.0-1.8); Eosinophils # (Auto) 0.1 K/mm3 (0.0-0.4); Hematocrit 31.7 % (30.3-42.9); Lymphocytes # (Auto) 1.8 K/mm3 (1.2-5.4); Lymphocytes % (Auto) 24.4 % (13.4-35.0); Mean Corpuscular HGB Conc 32 % (30-34); Mean Corpuscular Volume 77 fl (79-97); Monocytes # (Auto) 0.4 K/mm3 (0.0-0.8); Platelet Count 290 K/mm3 (140-440); Red Blood Count 4.12 M/mm3 (3.65-5.03); Red Cell Distribution Width 16.9 % (13.2-15.2)
[2021-10-19 16:54] LABS: Alanine Aminotransferase 9 units/L (7-56); Albumin 4.3 g/dL (3.9-5); Blood Urea Nitrogen 9 mg/dL (7-17); Calcium 8.8 mg/dL (8.4-10.2); Hemolysis Index 1
[2021-10-19 16:57] LABS: BUN/Creatinine Ratio 15
[2021-10-19 17:41] LABS: HCG Qualitative,Urine Negative (Negative)
[2021-10-19 17:46] LABS: Bacteria,Urine 1+ /HPF (Negative); Bilirubin,Urine NEG (Negative); Blood,Urine NEG (Negative); Color,Urine Straw (Yellow); Mucus,Urine FEW /HPF; Protein,Urine <15 mg/dL mg/dL (Negative); RBC,Urine < 1.0 /HPF (0.0-6.0); Urobilinogen,Urine < 2.0 mg/dL (<2.0)
--- NOTE | 2021-10-19 19:21 | XRay Report ---
CHEST 1 VIEW INDICATION / CLINICAL INFORMATION: Tightness. COMPARISON: None available. FINDINGS: SUPPORT DEVICES: None. HEART / MEDIASTINUM: No significant abnormality. LUNGS / PLEURA: No significant pulmonary or pleural abnormality. No pneumothorax. ADDITIONAL FINDINGS: No significant additional findings. IMPRESSION: 1. No acute findings. Signer Name: Chuck Melendez MD Signed: 10/19/2021 7:17 PM Workstation Name: [id number]
--- NOTE | 2021-10-19 19:54 | Emergency Department Report ---
ED General Adult HPI - General Chief complaint: Weakness Stated complaint: WEAKNESS/DIZZY/HOTFLASH Source: EMS Mode of arrival: Stretcher Limitations: Physical Limitation - History of Present Illness Initial comments: Patient is a 41-year-old -[place] female with no past medical history who presents to the ED with complaint of acute onset persistent tingling sensation in upper and lower extremities, chest tightness, shortness of breath and jitteriness for the last 1 hour. Patient states that she had a similar symptom 24 hours ago while seated on her couch at home watching television. Patient states that this is the third time this incident has occurred but today 's incidents were worse than the previous incidents. Patient denies dizziness, syncope, loss of consciousness, headache, chest pain or cough, nausea and vomiting, diarrhea, abdominal pain, nasal and sinus congestion, dysuria, urinary frequency and urgency, fever and chills. MD Complaint: Tingling sensation in upper and lower extremities; chest tightness -: Sudden, hour(s) (1) Location: head, chest Radiation: non-radiation Severity scale (0 -10): 0 Consistency: constant Improves with: none Worsens with: none Associated Symptoms: denies other symptoms, shortness of breath, weakness. denies: confusion, chest pain, cough, diaphoresis, fever/chills, headaches, loss of appetite, malaise, nausea/vomiting, rash, seizure, syncope Treatments Prior to Arrival: none - Related Data Previous Rx's Medication Instructions Recorded Last Taken Type Ferrous Sulfate 325 mg PO TID #60 tablet. 07/05/18 Unknown Rx Ibuprofen [Motrin] 600 mg PO Q8H PRN #30 tablet 07/05/18 Unknown Rx oxyCODONE /ACETAMINOPHEN [Percocet 1 tab PO Q6HR PRN #30 tablet 07/05/18 Unknown Rx 5/325] hydrOXYzine PAMOATE [Vistaril] 50 mg PO Q12HR PRN #60 capsule 10/19/21 Unknown Rx Allergies Allergy/AdvReac Type Severity Reaction Status Date / Time No Known Allergies Allergy Verified 10/19/21 15:32 ED Review of Systems ROS: Stated complaint: WEAKNESS/DIZZY/HOTFLASH Other details as noted in HPI Constitutional: malaise, weakness. denies: chills, fever Eyes: denies: eye pain, eye discharge, vision change ENT: denies: ear pain, throat pain, congestion Respiratory: denies: cough, shortness of breath, wheezing Cardiovascular: denies: chest pain, palpitations Endocrine: no symptoms reported Gastrointestinal: denies: abdominal pain, nausea, vomiting, diarrhea Genitourinary: denies: urgency, dysuria, discharge Musculoskeletal: other (Tingling sensation in upper and lower extremities bilaterally). denies: back pain, joint swelling, arthralgia Skin: denies: rash, lesions Neurological: denies: headache, weakness, numbness, paresthesias, confusion, abnormal gait, vertigo Psychiatric: denies: anxiety, depression Hematological/Lymphatic: denies: easy bleeding, easy bruising ED Past Medical Hx - Past Medical History Hx Hypertension: No Hx Diabetes: No Hx Deep Vein Thrombosis: No Hx Renal Disease: No Hx Sickle Cell Disease: No Hx Seizures: No Hx Asthma: No Hx HIV: No - Surgical History Additional Surgical History: D&C 2007 - Social History Smoking Status: Former Smoker - Medications Home Medications: Home Medications Medication Instructions Recorded Confirmed Last Taken Type Ferrous Sulfate 325 mg PO TID #60 tablet.dr 07/05/18 Unknown Rx Ibuprofen [Motrin] 600 mg PO Q8H PRN #30 tablet 07/05/18 Unknown Rx oxyCODONE /ACETAMINOPHEN [Percocet 1 tab PO Q6HR PRN #30 tablet 07/05/18 Unknown Rx 5/325] hydrOXYzine PAMOATE [Vistaril] 50 mg PO Q12HR PRN #60 capsule 10/19/21 Unknown Rx ED Physical Exam - General Limitations: Physical Limitation General appearance: alert, in no apparent distress, anxious - Head Head exam: Present: atraumatic, normocephalic, normal inspection - Eye Eye exam: Present: normal appearance, PERRL, EOMI Pupils: Present: normal accommodation - ENT ENT exam: Present: normal exam, normal orophraynx, mucous membranes moist, TM's normal bilaterally, normal external ear exam - Neck Neck exam: Present: normal inspection, full ROM. Absent: tenderness - Respiratory Respiratory exam: Present: normal lung sounds bilaterally. Absent: respiratory distress, wheezes, rales, stridor, chest wall tenderness, accessory muscle use, decreased breath sounds, prolonged expiratory - Cardiovascular Cardiovascular Exam: Present: normal rhythm, tachycardia, normal heart sounds. Absent: systolic murmur, diastolic murmur, rubs, gallop - GI/Abdominal GI/Abdominal exam: Present: soft, normal bowel sounds. Absent: tenderness, guarding, rebound, hyperactive bowel sounds, hypoactive bowel sounds, organomegaly, mass - Extremities Exam Extremities exam: Present: normal inspection, full ROM, normal capillary refill. Absent: tenderness - Back Exam Back exam: Present: normal inspection, full ROM. Absent: tenderness, CVA tenderness (R), CVA tenderness (L), muscle spasm, paraspinal tenderness, vertebral tenderness - Neurological Exam Neurological exam: Present: alert, oriented X3, CN II-XII intact, normal gait, reflexes normal - Psychiatric Psychiatric exam: Present: normal affect, normal mood, anxious. Absent: agitated, homicidal ideation, suicidal ideation - Skin Skin exam: Present: warm, dry, intact, normal color. Absent: rash ED Course Vital Signs 10/19/21 10/19/21 15:17 17:20 Temperature 97.9 F Pulse Rate 101 H 70 Respiratory 16 Rate Blood Pressure 121/79 [Left] O2 Sat by Pulse 97 Oximetry ED Medical Decision Making - Lab Data Result diagrams: 10/19/21 15:57 10/19/21 15:57 - Radiology Data Radiology results: report reviewed, [place] [address] XRay Report Signed Patient: MEERA ZIMMER MR #: [id number] : 1980 Acct:[id number] Age/Sex: 41 / F ADM Date: 10/19/21 Loc: ED Attending Dr: Ordering Physician: STEFANIE FLOYD Date of Service: 10/19/21 Procedure(s): XR chest 1V ap Accession Number(s): [id number] cc: STEFANIE FLOYD Fluoro Time In Minutes: CHEST 1 VIEW INDICATION / CLINICAL INFORMATION: Tightness. COMPARISON: None available. FINDINGS: SUPPORT DEVICES: None. HEART / MEDIASTINUM: No significant abnormality. LUNGS / PLEURA: No significant pulmonary or pleural abnormality. No pneumothorax. ADDITIONAL FINDINGS: No significant additional findings. IMPRESSION: 1. No acute findings. Signer Name: Chuck Sawyer MD Signed: 10/19/2021 7:17 PM Workstation Name: [id number] Transcribed By: SB Dictated By: CHUCK SAWYER MD Electronically Authenticated By: CHUCK SAWYER MD Signed Date/Time: 10/19/211916 DD/ 16 TD/TT: - Medical Decision Making This is a 41-year-old -[place] female with no past medical history who presents to the ED with complaint of acute onset persistent tingling sensation in upper and lower extremities, chest tightness, shortness of breath and jitteriness for the last 1 hour. Patient states that she had a similar symptom 24 hours ago while seated on her couch at home watching television. Patient states that this is the third time this incident has occurred but today's incidents were worse than the previous incidents. In the ED, patient is alert and oriented x3 and is not in any distress. Patient is however tachycardic but afebrile in triage. All lab test results were reviewed and are all nonacti onable. Patient was treated in the ED for suspected acute anxiety or panic attack. Chest x-ray showed no acute cardiopulmonary abnormalities or pneumonitis. On reevaluation, patient's symptoms resolved, patient felt better and was discharged home on medications. Patient was advised to follow-up with her primary care physician in 7 to 10 days for reevaluation or return to the ED immediately if symptoms get worse. - Differential Diagnosis Anxiety; panic attacks; depression; Critical care attestation.: If time is entered above; I have spent that time in minutes in the direct care of this critically ill patient, excluding procedure time. ED Disposition Clinical Impression: Anxiety as acute reaction to exceptional stress, Generalized weakness Disposition: 01 HOME / SELF CARE / HOMELESS Is pt being admited?: No Does the pt Need Aspirin: No Condition: Stable Instructions: Generalized Anxiety Disorder, Adult, Weakness, [id number], Panic Attack, [id number] Additional Instructions: All lab test results were reviewed and are all nonactionable. Chest x-ray showed no acute cardiopulmonary abnormalities or pneumonitis. Your symptoms are likely due to anxiety or panic attack. Therefore take medications as advised, drink plenty of fluids and follow-up with your primary care physician in 7 to 10 days for reevaluation or return to the ED immediately if symptoms get worse. Prescriptions: hydrOXYzine PAMOATE [Vistaril] 50 mg PO Q12HR PRN #60 capsule PRN Reason: Anxiety Referrals: [facility] [Provider Group] - 7-10 days Forms: Work/School Release Form(ED) Time of Disposition: 19:55 Print Language: LAO
[2021-10-19 20:21] VITALS: BP 111/76
--- NOTE | 2021-10-20 21:34 | Electrocardiograph Report ---
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
== END 2021-10-19 20:19 | disposition home or self-care (01) ==
LOC: ED 15:09
DX: F43.0 Acute stress reaction (principal); R53.1 Weakness
CPT/HCPCS: 36415; 71045; 80053; 81001; 81025; 84484; 85025; 93005; 99284

== ENCOUNTER 2021-10-22 09:40 | Emergency (ER) | payer SELFPAY ==
[2021-10-22 09:52] VITALS: BP 118/76
--- NOTE | 2021-10-22 11:20 | Emergency Department Report ---
ED Anxiety HPI - General Chief Complaint: Anxiety Stated Complaint: ANXIETY Time Seen by Provider: 10/22/21 10:41 Source: EMS Mode of arrival: Stretcher - History of Present Illness Initial Comments: 41-year-old black female with no past medical history presents to the emergency department for evaluation of anxiety. She states that she was driving this morning and out of nowhere, she started to feel really anxious. She states that her hands were shaking, she felt like her heart was racing, and she had some shortness of breath. She states that she pulled over and called 911 to her to the ER. She states that she was seen here on Thursday for the same and given a prescription for Vistaril. She states that while in the waiting room, she took some Vistaril and has since had resolution of all her symptoms. She denies chest pain, shortness of breath, nervousness, palpitations, nausea, vomiting, dizziness, or diaphoresis. She denies SI and HI. MD Complaint: anxiety -: Sudden, This morning Symptoms: dyspnea, palpitations Place: other (While driving) Previous History of Same: Yes Severity: moderate Quality: improving (Resolved), similar to prior episodes Provoking factors: none known Improves With: medication, rest Associated symptoms: shortness of breath, palpitations. denies: chest pain, diaphoresis, confusion, cough, fever/chills, headaches, anorexia, malaise, nausea/vomiting, rash, seizure, syncope, weakness - Related Data Home Medications: Previous Rx's Medication Instructions Recorded Last Taken Type Ferrous Sulfate 325 mg PO TID #60 tablet. 07/05/18 Unknown Rx Ibuprofen [Motrin] 600 mg PO Q8H PRN #30 tablet 07/05/18 Unknown Rx oxyCODONE /ACETAMINOPHEN [Percocet 1 tab PO Q6HR PRN #30 tablet 07/05/18 Unknown Rx 5/325] hydrOXYzine PAMOATE [Vistaril] 50 mg PO Q12HR PRN #60 capsule 10/19/21 Unknown Rx Allergies/Adverse Reactions: Allergies Allergy/AdvReac Type Severity Reaction Status Date / Time No Known Allergies Allergy Verified 10/19/21 15:32 ED Review of Systems ROS: Stated complaint: ANXIETY Other details as noted in HPI Comment: All other systems reviewed and negative Constitutional: denies: chills, diaphoresis, fever, malaise, weakness Respiratory: shortness of breath. denies: SOB with exertion, SOB at rest, stridor, wheezing Cardiovascular: palpitations. denies: chest pain, dyspnea on exertion, orthopnea, edema, syncope, paroxysmal nocturnal dyspnea Gastrointestinal: denies: abdominal pain, nausea, vomiting, diarrhea, hematemesis, melena, hematochezia Genitourinary: denies: urgency, dysuria, frequency, hematuria Musculoskeletal: denies: back pain Skin: denies: rash, lesions Neurological: denies: headache, weakness, numbness, paresthesias, confusion, abnormal gait, vertigo Psychiatric: anxiety. denies: depression, auditory hallucinations, visual hallucinations, homicidal thoughts, suicidal thoughts ED Past Medical Hx - Past Medical History Hx Hypertension: No Hx Diabetes: No Hx Deep Vein Thrombosis: No Hx Renal Disease: No Hx Sickle Cell Disease: No Hx Seizures: No Hx Asthma: No Hx HIV: No Additional medical history: ANXIETY - Surgical History Additional Surgical History: D&C 2007 - Social History Smoking Status: Never Smoker - Medications Home Medications: Home Medications Medication Instructions Recorded Confirmed Last Taken Type Ferrous Sulfate 325 mg PO TID #60 tablet.dr 07/05/18 Unknown Rx Ibuprofen [Motrin] 600 mg PO Q8H PRN #30 tablet 07/05/18 Unknown Rx oxyCODONE /ACETAMINOPHEN [Percocet 1 tab PO Q6HR PRN #30 tablet 07/05/18 Unknown Rx 5/325] hydrOXYzine PAMOATE [Vistaril] 50 mg PO Q12HR PRN #60 capsule 10/19/21 Unknown Rx ED Physical Exam - General Limitations: No Limitations General appearance: alert, in no apparent distress - Head Head exam: Present: atraumatic, normocephalic - Eye Eye exam: Present: normal appearance. Absent: conjunctival injection - Neck Neck exam: Present: normal inspection. Absent: lymphadenopathy - Respiratory Respiratory exam: Present: normal lung sounds bilaterally. Absent: respiratory distress, wheezes, rales, rhonchi, stridor, chest wall tenderness - Cardiovascular Cardiovascular Exam: Present: regular rate, normal heart sounds - GI/Abdominal GI/Abdominal exam: Present: soft, normal bowel sounds. Absent: distended, tenderness, guarding, rebound, rigid - Extremities Exam Extremities exam: Present: normal inspection, normal capillary refill. Absent: pedal edema, joint swelling, calf tenderness - Back Exam Back exam: Present: normal inspection. Absent: CVA tenderness (R), CVA tenderne ss (L), vertebral tenderness - Neurological Exam Neurological exam: Present: alert, oriented X3, normal gait - Psychiatric Psychiatric exam: Present: normal affect, normal mood. Absent: anxious, homicidal ideation, suicidal ideation - Skin Skin exam: Present: warm, dry, intact, normal color ED Course Vital Signs 10/22/21 09:48 Pulse Rate 74 Respiratory 18 Rate Blood Pressure 118/76 O2 Sat by Pulse 99 Oximetry ED Medical Decision Making - Medical Decision Making 41-year-old black female with no past medical history presents to the emergency department for evaluation of anxiety. She states that she was driving this morning and out of nowhere, she started to feel really anxious. She states that her hands were shaking, she felt like her heart was racing, and she had some shortness of breath. She states that she pulled over and called 911 to her to the ER. She states that she was seen here on Thursday for the same and given a prescription for Vistaril. She states that while in the waiting room, she took some Vistaril and has since had resolution of all her symptoms. She denies chest pain, shortness of breath, nervousness, palpitations, nausea, vomiting, dizziness, or diaphoresis. She denies SI and HI. Physical exam unremarkable. Patient without any complaints of or symptoms at this time. She was advised to continue medication as previously prescribed and follow-up with her primary care provider for further evaluation and management. She is advised to return to the emergency department for any concerning symptoms. She verbalizes understanding of and agreement with plan of care. Critical care attestation.: If time is entered above; I have spent that time in minutes in the direct care of this critically ill patient, excluding procedure time. ED Disposition Clinical Impression: Acute anxiety Disposition: HOME / SELF CARE / HOMELESS Is pt being admited?: No Does the pt Need Aspirin: No Condition: Stable Instructions: Managing Anxiety, Adult, Panic Attack, [id number], Generalized Anxiety Disorder, Adult Additional Instructions: Continue medication as previously prescribed from Thursday's visit. Follow-up with your primary care provider or mental health professional for further evaluation and management. Return to the emergency department as needed. Referrals: BOBBY LAL MD [Primary Care Provider] - 3-5 Days OSEI CARDENAS NP [Staff Physician] - 3-5 Days ANTON COPE MD [Staff Physician] - 3-5 Days Forms: Work/School Release Form(ED) Time of Disposition: 11:23
== END 2021-10-22 11:34 | disposition home or self-care (01) ==
LOC: ED 09:40
DX: F41.9 Anxiety disorder, unspecified (principal); Z79.899 Other long term (current) drug therapy
CPT/HCPCS: 99283